=== PATIENT | female | born 1945 | race Caucasian/White ===

== ENCOUNTER → 2016-08-14 | Outpatient (REF) | payer MEDICARE, OTHER ==
[~2016-08-14] MED LIST: /LINE60TA OR; BABY81CH; BABY81CH OR; CALCCHW12 OR; CALCIUM/VITAMIN D; CRAN500C2 PO; FOSA70TA PO; GINKGO BILOBA; LIPI10TA; LIPI10TA OR; LISI20TA5; LISI20TA5 OR; MAGN500C PO; MAGNESIUM OXIDE; MULTIVIT; MULTIVIT OR; NAPR500T; PRED20TA; VITAMIN C; [UNRECOGNIZED DRUG - OTHER]
== END ==
LOC: M SFHCCAPE 16:10
PROVIDERS: ATTEND Physician Assistant
DX: R35.0 Frequency of micturition (principal)
CPT/HCPCS: 81002; 87088; 87186; G0463

== ENCOUNTER → 2016-09-23 | Outpatient (REF) | payer MEDICARE, OTHER ==
[2016-09-23 11:19] LABS: BASO % 0.8 % (0.0-1.0); EOS # 0.1 K/mm3 (0.0-0.50); EOS % 1.2 % (0.0-3.0); LARGE UNSTAINED CELL # 0.1 K/mm3 (0.0-0.4); LYMPH # 1.4 K/mm3 (1.5-4.5); LYMPH % 20.8 % (24.0-44.0); MEAN CORPUSCULAR HEMOGLOBIN 30.7 pg (27.0-33.0); MEAN CORPUSCULAR HGB CONC 32.2 g/dl (32.0-36.5); MEAN CORPUSCULAR VOLUME 95.1 fl (80.0-96.0); MONO # 0.5 K/mm3 (0.0-0.8); MONO % 7.6 % (0.0-5.0); NEUTROPHILS % 67.6 % (36.0-66.0); PLATELET COUNT, AUTOMATED 206 k/mm3 (150-450); RED CELL DISTRIBUTION WIDTH 12.7 % (11.5-14.5); WHITE BLOOD COUNT 5.9 K/mm3 (4.0-10.0)
[2016-09-23 11:32] LABS: ALBUMIN 3.8 GM/DL (3.2-5.2); ALBUMIN/GLOBULIN RATIO 1.36 (1.00-1.93); ALKALINE PHOSPHATASE 64 U/L (45-117); ALT/SGPT 33 U/L (12-78); ANION GAP 6 MEQ/L (8-16); AST/SGOT 22 U/L (15-37); BILIRUBIN,TOTAL 0.6 MG/DL (0.2-1.0); BLOOD UREA NITROGEN 18 MG/DL (7-18); CALCIUM LEVEL 8.7 MG/DL (8.8-10.2); CARBON DIOXIDE LEVEL 32 MEQ/L (21-32); CHLORIDE LEVEL 105 MEQ/L (98-107); CHOLESTEROL LEVEL 178 MG/DL (<200); CREATININE FOR GFR 0.82 MG/DL (0.55-1.02); GLOMERULAR FILTRATION RATE > 60.0 (>45); GLUCOSE, FASTING 92 MG/DL (80-110); POTASSIUM SERUM 4.5 MEQ/L (3.5-5.1); SODIUM LEVEL 143 MEQ/L (136-145); TOTAL PROTEIN 6.6 GM/DL (6.4-8.2); TRIGLYCERIDES LEVEL 82 MG/DL (<150)
[2016-09-23 11:34] LABS: VITAMIN B12 LEVEL 1057 PG/ML (247-911)
[2016-09-25 11:11] LABS: ALBUMIN 2.77 GM/DL (3.29-5.55); GAMMA GLOBULIN % 29.5 % (11.1-18.8)
== END ==
LOC: M SFHCPLAZ 08:17
PROVIDERS: ATTEND Family Medicine
DX: I10 Essential (primary) hypertension (principal); E78.5 Hyperlipidemia, unspecified; E55.9 Vitamin D deficiency, unspecified

== ENCOUNTER → 2017-02-27 | Outpatient (REF) | payer MEDICARE, OTHER ==
[2017-02-27 13:28] LABS: ALBUMIN 3.9 GM/DL (3.2-5.2); ALBUMIN/GLOBULIN RATIO 1.44 (1.00-1.93); ALKALINE PHOSPHATASE 65 U/L (45-117); ALT/SGPT 24 U/L (12-78); ANION GAP 6 MEQ/L (8-16); AST/SGOT 15 U/L (15-37); BILIRUBIN,TOTAL 0.5 MG/DL (0.2-1.0); BLOOD UREA NITROGEN 17 MG/DL (7-18); CARBON DIOXIDE LEVEL 32 MEQ/L (21-32); CHLORIDE LEVEL 107 MEQ/L (98-107); CREATININE FOR GFR 0.79 MG/DL (0.55-1.02); FREE T4 0.97 NG/DL (0.76-1.46); GLOMERULAR FILTRATION RATE > 60.0 (>45); GLUCOSE, FASTING 85 MG/DL (80-110); MAGNESIUM LEVEL 2.3 MG/DL (1.8-2.4); POTASSIUM SERUM 4.1 MEQ/L (3.5-5.1); SODIUM LEVEL 145 MEQ/L (136-145); TOTAL PROTEIN 6.6 GM/DL (6.4-8.2)
== END ==
LOC: M SFHCPLAZ 08:24
PROVIDERS: ATTEND Family Medicine
DX: E55.9 Vitamin D deficiency, unspecified (principal); I10 Essential (primary) hypertension; E78.5 Hyperlipidemia, unspecified; Z79.899 Other long term (current) drug therapy

== ENCOUNTER → 2017-07-06 | Outpatient (REF) | payer MEDICARE, OTHER ==
[2017-07-06 11:37] LABS: BASO # 0.1 10^3/uL (0.0-0.2); BASO % 0.9 % (0.0-1.0); EOS # 0.1 10^3/uL (0.0-0.50); EOS % 1.4 % (0.0-3.0); HEMATOCRIT 43.2 % (36.0-47.0); HEMOGLOBIN 14.4 g/dl (12.0-16.0); IMMATURE GRANULOCYTE % 0.5 % (0-0); LYMPH # 1.5 10^3/uL (1.5-4.5); LYMPH % 22.7 % (24.0-44.0); MEAN CORPUSCULAR HEMOGLOBIN 31.2 pg (27.0-33.0); MEAN CORPUSCULAR HGB CONC 33.3 g/dl (32.0-36.5); MEAN CORPUSCULAR VOLUME 93.7 fl (80.0-96.0); MONO # 0.6 10^3/uL (0.0-0.8); MONO % 8.9 % (0.0-5.0); NEUTROPHILS # 4.3 10^3/uL (1.8-7.7); NEUTROPHILS % 65.6 % (36.0-66.0); PLATELET COUNT, AUTOMATED 239 10^3/uL (150-450); RED BLOOD COUNT 4.61 10^6/uL (4.00-5.40); RED CELL DISTRIBUTION WIDTH 12.7 % (11.5-14.5); WHITE BLOOD COUNT 6.5 10^3/uL (4.0-10.0)
[2017-07-06 11:54] LABS: PTH INTACT 65.1 PG/ML (14.0-72.0); TOTAL 25(OH) VITAMIN D 45.3 NG/ML (30.0-100.0)
[2017-07-06 12:05] LABS: ALBUMIN 3.8 GM/DL (3.2-5.2); ALBUMIN/GLOBULIN RATIO 1.31 (1.00-1.93); ALKALINE PHOSPHATASE 62 U/L (45-117); ALT/SGPT 21 U/L (12-78); ANION GAP 3 MEQ/L (8-16); AST/SGOT 17 U/L (7-37); BILIRUBIN,TOTAL 0.6 MG/DL (0.2-1.0); BLOOD UREA NITROGEN 13 MG/DL (7-18); C REACTIVE PROTEIN QUANTITATIV < 0.30 MG/DL (0.00-0.30); CALCIUM LEVEL 8.7 MG/DL (8.8-10.2); CARBON DIOXIDE LEVEL 34 MEQ/L (21-32); CHLORIDE LEVEL 103 MEQ/L (98-107); CHOLESTEROL LEVEL 176 MG/DL (<200); CHOLESTEROL RISK RATIO 3.087 (<5); CPK CREATINE PHOSPHOKINASE 59 U/L (26-192); CREATININE FOR GFR 0.69 MG/DL (0.55-1.30); GLOMERULAR FILTRATION RATE > 60.0 (>45); GLUCOSE, FASTING 97 MG/DL (70-100); HDL CHOLESTEROL 57 MG/DL (>40); LDL CHOLESTEROL 97.2 MG/DL (<100); NON-HDL-C 119 MG/DL; POTASSIUM SERUM 4.4 MEQ/L (3.5-5.1); SODIUM LEVEL 140 MEQ/L (136-145); TOTAL PROTEIN 6.7 GM/DL (6.4-8.2); TRIGLYCERIDES LEVEL 109 MG/DL (<150)
== END ==
LOC: M SFHCCLAY 07:21
DX: D75.89 Other specified diseases of blood and blood-forming organs (principal); E78.5 Hyperlipidemia, unspecified; E55.9 Vitamin D deficiency, unspecified
CPT/HCPCS: 82550

== ENCOUNTER → 2017-11-03 | Outpatient (REF) | payer MEDICARE, OTHER ==
[2017-11-03 11:25] LABS: BASO # 0.1 10^3/uL (0.0-0.2); BASO % 0.9 % (0.0-1.0); EOS # 0.1 10^3/uL (0.0-0.50); EOS % 1.2 % (0.0-3.0); HEMATOCRIT 43.6 % (36.0-47.0); HEMOGLOBIN 14.5 g/dl (12.0-15.5); IMMATURE GRANULOCYTE % 0.1 % (0-3.0); LYMPH # 1.8 10^3/uL (1.5-4.5); LYMPH % 25.9 % (24.0-44.0); MEAN CORPUSCULAR HGB CONC 33.3 g/dl (32.0-36.5); MEAN CORPUSCULAR VOLUME 93.2 fl (80.0-96.0); MONO # 0.7 10^3/uL (0.0-0.8); MONO % 9.5 % (0.0-5.0); NEUTROPHILS # 4.3 10^3/uL (1.8-7.7); NEUTROPHILS % 62.4 % (36.0-66.0); PLATELET COUNT, AUTOMATED 242 10^3/uL (150-450); RED BLOOD COUNT 4.68 10^6/uL (4.00-5.40); RED CELL DISTRIBUTION WIDTH 12.5 % (11.5-14.5); WHITE BLOOD COUNT 6.8 10^3/uL (4.0-10.0)
[2017-11-03 11:34] LABS: ALBUMIN 3.8 GM/DL (3.2-5.2); ALBUMIN/GLOBULIN RATIO 1.23 (1.00-1.93); ALKALINE PHOSPHATASE 74 U/L (45-117); ALT/SGPT 21 U/L (12-78); ANION GAP 5 MEQ/L (8-16); AST/SGOT 19 U/L (7-37); BILIRUBIN,TOTAL 0.7 MG/DL (0.2-1.0); BLOOD UREA NITROGEN 15 MG/DL (7-18); CALCIUM LEVEL 8.7 MG/DL (8.8-10.2); CARBON DIOXIDE LEVEL 31 MEQ/L (21-32); CHLORIDE LEVEL 105 MEQ/L (98-107); CREATININE FOR GFR 0.82 MG/DL (0.55-1.30); GLOMERULAR FILTRATION RATE > 60.0 (>45); GLUCOSE, FASTING 92 MG/DL (70-100); POTASSIUM SERUM 4.3 MEQ/L (3.5-5.1); SODIUM LEVEL 141 MEQ/L (136-145); TOTAL PROTEIN 6.9 GM/DL (6.4-8.2)
[2017-11-03 11:42] LABS: ESTIMATED AVERAGE GLUCOSE 105 MG/DL (60-110); HEMOGLOBIN A1c 5.3 %
[2017-11-03 11:56] LABS: PTH INTACT 66.9 PG/ML (18.5-88.0); TOTAL 25(OH) VITAMIN D 57.6 NG/ML (30.0-100.0)
== END ==
LOC: M SFHCCLAY 07:37
DX: D75.89 Other specified diseases of blood and blood-forming organs (principal); E55.9 Vitamin D deficiency, unspecified; E78.5 Hyperlipidemia, unspecified; R73.01 Impaired fasting glucose
CPT/HCPCS: 80053

== ENCOUNTER → 2018-04-02 | Outpatient (CLI) | payer MEDICARE, OTHER | LOC: M WHC 08:24 | DX: Z12.31 Encounter for screening mammogram for malignant neoplasm of breast (principal); Z80.3 Family history of malignant neoplasm of breast | CPT/HCPCS: 77067 ==

== ENCOUNTER → 2018-04-08 | Outpatient (REF) | payer MEDICARE, OTHER ==
[2018-04-08 11:36] LABS: BASO # 0.1 10^3/uL (0.0-0.2); BASO % 0.8 % (0.0-1.0); EOS # 0.1 10^3/uL (0.0-0.50); EOS % 1.6 % (0.0-3.0); HEMATOCRIT 42.5 % (36.0-47.0); HEMOGLOBIN 13.9 g/dl (12.0-15.5); IMMATURE GRANULOCYTE % 0.3 % (0-3.0); LYMPH # 1.6 10^3/uL (1.5-4.5); LYMPH % 24.7 % (24.0-44.0); MEAN CORPUSCULAR HEMOGLOBIN 31.5 pg (27.0-33.0); MEAN CORPUSCULAR HGB CONC 32.7 g/dl (32.0-36.5); MEAN CORPUSCULAR VOLUME 96.4 fl (80.0-96.0); MONO # 0.6 10^3/uL (0.0-0.8); MONO % 9.2 % (0.0-5.0); NEUTROPHILS # 4.1 10^3/uL (1.8-7.7); NEUTROPHILS % 63.4 % (36.0-66.0); PLATELET COUNT, AUTOMATED 248 10^3/uL (150-450); RED BLOOD COUNT 4.41 10^6/uL (4.00-5.40); RED CELL DISTRIBUTION WIDTH 13.1 % (11.5-14.5); RETIC HEMOGLOBIN EQUIVALENT 36.4 pg (24-36); RETICULOCYTE # 149.9 10^9/L (17-77); RETICULOCYTE % 3.4 % (0.5-1.5); WHITE BLOOD COUNT 6.4 10^3/uL (4.0-10.0)
[2018-04-08 12:07] LABS: ALBUMIN 3.7 GM/DL (3.2-5.2); ALBUMIN/GLOBULIN RATIO 1.32 (1.00-1.93); ALKALINE PHOSPHATASE 71 U/L (45-117); ALT/SGPT 20 U/L (12-78); ANION GAP 8 MEQ/L (8-16); AST/SGOT 19 U/L (7-37); BILIRUBIN,TOTAL 0.6 MG/DL (0.2-1.0); BLOOD UREA NITROGEN 14 MG/DL (7-18); CALCIUM LEVEL 9.1 MG/DL (8.8-10.2); CARBON DIOXIDE LEVEL 31 MEQ/L (21-32); CHLORIDE LEVEL 104 MEQ/L (98-107); CHOLESTEROL LEVEL 161 MG/DL (<200); CHOLESTEROL RISK RATIO 2.875 (<5); CREATININE FOR GFR 0.89 MG/DL (0.55-1.30); FREE T4 0.99 NG/DL (0.76-1.46); GLOMERULAR FILTRATION RATE > 60.0 (>39); GLUCOSE, FASTING 95 MG/DL (70-100); HDL CHOLESTEROL 56 MG/DL (>40); LDL CHOLESTEROL 87 MG/DL (<100); NON-HDL-C 105 MG/DL; POTASSIUM SERUM 4.6 MEQ/L (3.5-5.1); SODIUM LEVEL 143 MEQ/L (136-145); THYROID STIMULATING HORMONE 0.491 uIU/ML (0.358-3.740); TOTAL PROTEIN 6.5 GM/DL (6.4-8.2); TRIGLYCERIDES LEVEL 91 MG/DL (<150)
[2018-04-09 14:27] LABS: INSULIN LEVEL 9.2 uIU/mL (2.6-24.9)
== END ==
LOC: M SFHCCLAY 08:33
DX: E78.5 Hyperlipidemia, unspecified (principal); R73.01 Impaired fasting glucose
CPT/HCPCS: 83525

== ENCOUNTER → 2018-10-11 | Outpatient (REF) | payer MEDICARE, OTHER ==
[~2018-10-11] MED LIST changes: -/LINE60TA OR; +ZYVO100T OR
[2018-10-11 11:57] LABS: BASO # 0.1 10^3/uL (0.0-0.2); BASO % 1.2 % (0.0-1.0); EOS # 0.1 10^3/uL (0.0-0.50); EOS % 1.7 % (0.0-3.0); HEMATOCRIT 44.9 % (36.0-47.0); HEMOGLOBIN 14.6 g/dl (12.0-15.5); LYMPH # 1.5 10^3/uL (1.5-4.5); LYMPH % 23.1 % (24.0-44.0); MEAN CORPUSCULAR HEMOGLOBIN 30.7 pg (27.0-33.0); MEAN CORPUSCULAR HGB CONC 32.5 g/dl (32.0-36.5); MEAN CORPUSCULAR VOLUME 94.5 fl (80.0-96.0); MONO # 0.6 10^3/uL (0.0-0.8); MONO % 8.5 % (0.0-5.0); NEUTROPHILS # 4.3 10^3/uL (1.8-7.7); NEUTROPHILS % 65.2 % (36.0-66.0); PLATELET COUNT, AUTOMATED 236 10^3/uL (150-450); RED BLOOD COUNT 4.75 10^6/uL (4.00-5.40); WHITE BLOOD COUNT 6.6 10^3/uL (4.0-10.0)
[2018-10-11 12:13] LABS: ALBUMIN 3.8 GM/DL (3.2-5.2); ALT/SGPT 20 U/L (12-78); BILIRUBIN,TOTAL 0.5 MG/DL (0.2-1.0); BLOOD UREA NITROGEN 17 MG/DL (7-18); CALCIUM LEVEL 9.2 MG/DL (8.8-10.2); CARBON DIOXIDE LEVEL 33 MEQ/L (21-32); CHLORIDE LEVEL 106 MEQ/L (98-107); CREATININE FOR GFR 0.82 MG/DL (0.55-1.30); FERRITIN 24 NG/ML (8-252); GLOMERULAR FILTRATION RATE > 60.0 (>39); GLUCOSE, FASTING 97 MG/DL (70-100); IRON (FE) 113 UG/DL (50-170); MAGNESIUM LEVEL 2.1 MG/DL (1.8-2.4); POTASSIUM SERUM 4.3 MEQ/L (3.5-5.1); SODIUM LEVEL 140 MEQ/L (136-145); TOTAL IRON BINDING CAPACITY 290 UG/DL (250-450); TOTAL PROTEIN 6.6 GM/DL (6.4-8.2)
== END ==
LOC: M SFHCCLAY 08:31
PROVIDERS: ATTEND Family Medicine
DX: R73.01 Impaired fasting glucose (principal); D75.89 Other specified diseases of blood and blood-forming organs; I10 Essential (primary) hypertension; D50.9 Iron deficiency anemia, unspecified

== ENCOUNTER → 2019-03-16 | Outpatient (REF) | payer MEDICARE, OTHER ==
[2019-03-16 11:44] LABS: AMORPHOUS SEDIMENT LARGE (NEGATIVE); APPEARANCE, URINE TURBID (CLEAR); BACTERIA, URINE AUTO 2+ (NEGATIVE); BILIRUBIN, URINE AUTO NEGATIVE (NEGATIVE); BLOOD, URINE BLOOD 1+ (NEGATIVE); COLOR, URINE YELLOW (YELLOW); GLUCOSE, URINE (UA) AUTO NEGATIVE (NEGATIVE); KETONE, URINE AUTO NEGATIVE (NEGATIVE); LEUKOCYTE ESTERASE, URINE AUTO 3+ (NEGATIVE); NITRITE, URINE AUTO NEGATIVE (NEGATIVE); PROTEIN, URINE AUTO NEGATIVE (NEGATIVE); RBC, URINE AUTO 6 /HPF (0-3); SPECIFIC GRAVITY URINE AUTO 1.009 (1.002-1.035); SQUAMOUS EPITHELIAL CELL UR AU 26 /HPF (0-6); TRANSITIONAL EPITHELIAL AUTO 12 /HPF; UROBILINOGEN, URINE AUTO 0.2 mg/dL (0.0-2.0); WBC, URINE AUTO 81 /HPF (0-3)
[2019-03-16 11:52] LABS: ALBUMIN 3.9 GM/DL (3.2-5.2); ALT/SGPT 19 U/L (12-78); BILIRUBIN,TOTAL 0.6 MG/DL (0.2-1.0); BLOOD UREA NITROGEN 17 MG/DL (7-18); CALCIUM LEVEL 9.4 MG/DL (8.8-10.2); CARBON DIOXIDE LEVEL 36 MEQ/L (21-32); CHLORIDE LEVEL 106 MEQ/L (98-107); CHOLESTEROL LEVEL 184 MG/DL (<200); CHOLESTEROL RISK RATIO 3.066 (<5); CREATININE FOR GFR 0.95 MG/DL (0.55-1.30); FREE T4 1.01 NG/DL (0.76-1.46); GLOMERULAR FILTRATION RATE > 60.0 (>39); GLUCOSE, FASTING 108 MG/DL (70-100); HDL CHOLESTEROL 60 MG/DL (>40); LDL CHOLESTEROL 99 MG/DL (<100); NON-HDL-C 124 MG/DL; POTASSIUM SERUM 4.2 MEQ/L (3.5-5.1); SODIUM LEVEL 144 MEQ/L (136-145); THYROID STIMULATING HORMONE 0.471 uIU/ML (0.358-3.740); TRIGLYCERIDES LEVEL 123 MG/DL (<150)
[2019-03-16 12:33] LABS: CREATININE, URINE 68.8 MG/DL; MALB URINE SIEMENS 40.5 MG/L; MAU/CREAT RATIO 58.8 MCG/MG (0.0-30.0)
[2019-03-16 14:44] LABS: HEMOGLOBIN A1c 5.4 %
== END ==
LOC: M SFHCCLAY 08:44
PROVIDERS: ATTEND Family Medicine
DX: E78.5 Hyperlipidemia, unspecified (principal); R73.01 Impaired fasting glucose

== ENCOUNTER → 2019-05-16 | Outpatient (CLI) | payer MEDICARE, OTHER ==
--- NOTE | 2019-05-16 12:05 | REPMRS ---
Patient History The patient states she has not had a clinical breast exam in over a year. 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 Family history of breast cancer at age 50 or over in maternal aunt. No Hormone Replacement Therapy 3D TOMOSYNTHESIS WAS PERFORMED. [facility] lifetime risk for breast cancer is 5.8%. Digital Woman Screen Mammo: May 16, 2019 - Exam #: [id number] Bilateral CC and MLO view(s) were taken. Technologist: Ruth Morales, Technologist Prior study comparison: April 02, 2018, bilateral digital woman screen mammo performed at [facility]. April 01, 2017, digital woman screen mammo performed at [facility]. FINDINGS: The breast tissue is heterogeneously dense. This may lower the sensitivity of mammography. There has been no change in the appearance of the mammogram from the prior studies. There is a moderate amount of residual fibroglandular tissue which is fairly symmetric. There is no interval development of dominant mass, areas of architectural distortion, or clustered microcalcification typical of malignancy. Assessment: BI-RADS/ACR category 1 mammogram. Negative Mammogram. Recommendation Routine screening mammogram in 1 year (for women over age 40). This mammogram was interpreted with the aid of an FDA-approved computer-aided dectection system. Electronically Signed By: Stanley Nowak MD 05/16/19 [id number]
--- NOTE | 2019-05-17 13:53 | DEXA ---
AP SPINE L1 - L4 0.987 -1.7 0.0 LT FEMUR TOTAL 0.863 -1.1 0.4 LT NECK 0.796 -1.7 0.0 RT FEMUR TOTAL 0.808 -1.6 0.0 RT NECK 0.783 -1.8 -0.1 TOTAL BODY TOTAL OTHER COMMENTS: There is low bone density of the spine and hips. The decreased density of the spine does represent a significant change. The increased density of the left hip does not represent a significant change. The decreased density of the right hip does represent a significant change. The density of the spine has increased 0.5% since the initial exam on 10/12/2002. The spine density has decreased 2.8% since the most recent exam on 04/01/2017. The density of the left hip has decreased 13.4% since the initial exam on 10/12/2002. The density of the left hip has increased 0.1% since the most recent exam on 04/01/2017. The density of the right hip has decreased 11.8% since the initial exam on 10/12/2002. The density of the right hip has decreased 3.8% since the most recent exam on 04/01/2017. FOLLOW-UP: Recommendation for the next bone density exam: 2 years. VENANCIO
== END ==
LOC: M WHC 10:56
PROVIDERS: ATTEND Family Medicine
DX: Z12.31 Encounter for screening mammogram for malignant neoplasm of breast (principal); M85.88 Other specified disorders of bone density and structure, other site; Z80.3 Family history of malignant neoplasm of breast; Z85.810 Personal history of malignant neoplasm of tongue; M85.851 Other specified disorders of bone density and structure, right thigh; M85.852 Other specified disorders of bone density and structure, left thigh

== ENCOUNTER → 2019-08-08 | Outpatient (REF) | payer MEDICARE, OTHER ==
[2019-08-08 18:08] LABS: BASO % 0.6 % (0.0-1.0); EOS # 0.1 10^3/uL (0.0-0.5); EOS % 1.8 % (0.0-3.0); HEMOGLOBIN 14.4 g/dl (12.0-15.5); LYMPH # 1.8 10^3/uL (1.5-5.0); LYMPH % 26.1 % (24.0-44.0); MEAN CORPUSCULAR HEMOGLOBIN 30.8 pg (27.0-33.0); MEAN CORPUSCULAR HGB CONC 32.7 g/dl (32.0-36.5); MEAN CORPUSCULAR VOLUME 94.2 fl (80.0-96.0); MONO # 0.6 10^3/uL (0.0-0.8); MONO % 8.9 % (0.0-5.0); NEUTROPHILS # 4.3 10^3/uL (1.5-8.5); NEUTROPHILS % 62.3 % (36.0-66.0); PLATELET COUNT, AUTOMATED 238 10^3/uL (150-450); RED BLOOD COUNT 4.67 10^6/uL (4.00-5.40); WHITE BLOOD COUNT 6.9 10^3/uL (4.0-10.0)
[2019-08-08 18:11] LABS: ALBUMIN 3.7 GM/DL (3.2-5.2); ALT/SGPT 23 U/L (12-78); BILIRUBIN,TOTAL 0.4 MG/DL (0.2-1.0); BLOOD UREA NITROGEN 15 MG/DL (7-18); CALCIUM LEVEL 9.1 MG/DL (8.8-10.2); CARBON DIOXIDE LEVEL 33 MEQ/L (21-32); CHLORIDE LEVEL 104 MEQ/L (98-107); CREATININE FOR GFR 0.81 MG/DL (0.55-1.30); GLOMERULAR FILTRATION RATE > 60.0 (>39); GLUCOSE, FASTING 99 MG/DL (70-100); POTASSIUM SERUM 4.1 MEQ/L (3.5-5.1); SODIUM LEVEL 141 MEQ/L (136-145); TOTAL PROTEIN 6.3 GM/DL (6.4-8.2)
[2019-08-08 18:21] LABS: PTH INTACT 51.9 PG/ML (18.5-88.0)
[2019-08-08 19:36] LABS: HEMOGLOBIN A1c 5.6 %
== END ==
LOC: M SFHCCAPE 07:06
PROVIDERS: ATTEND Family Medicine
DX: R73.01 Impaired fasting glucose (principal); E55.9 Vitamin D deficiency, unspecified

== ENCOUNTER → 2020-01-12 | Outpatient (REF) | payer MEDICARE, OTHER ==
[2020-02-26 11:15] LABS: ALBUMIN 3.7 GM/DL (3.2-5.2); ALT/SGPT 20 U/L (12-78); BILIRUBIN,TOTAL 0.4 MG/DL (0.2-1.0); BLOOD UREA NITROGEN 21 MG/DL (7-18); CARBON DIOXIDE LEVEL 33 MEQ/L (21-32); CHLORIDE LEVEL 107 MEQ/L (98-107); CHOLESTEROL LEVEL 170 MG/DL (<200); CHOLESTEROL RISK RATIO 3.333 (<5); CREATININE FOR GFR 0.84 MG/DL (0.55-1.30); GLOMERULAR FILTRATION RATE > 60.0 (>39); GLUCOSE, FASTING 102 MG/DL (70-100); HDL CHOLESTEROL 51 MG/DL (>40); LDL CHOLESTEROL 100 MG/DL (<100); MAGNESIUM LEVEL 2.2 MG/DL (1.8-2.4); NON-HDL-C 119 MG/DL; POTASSIUM SERUM 4.2 MEQ/L (3.5-5.1); SODIUM LEVEL 142 MEQ/L (136-145); TOTAL PROTEIN 6.7 GM/DL (6.4-8.2); TRIGLYCERIDES LEVEL 97 MG/DL (<150)
== END ==
LOC: M LABDRAWC 10:39
PROVIDERS: ATTEND Family Medicine
DX: E78.5 Hyperlipidemia, unspecified (principal); R73.01 Impaired fasting glucose; I10 Essential (primary) hypertension

== ENCOUNTER → 2020-07-25 | Outpatient (REF) | payer MEDICARE, OTHER ==
[2020-07-25 12:17] LABS: BASO # 0.1 10^3/uL (0.0-0.2); EOS # 0.1 10^3/uL (0.0-0.5); EOS % 1.5 % (0.0-3.0); HEMATOCRIT 44.9 % (36.0-47.0); HEMOGLOBIN 14.4 g/dl (12.0-15.5); LYMPH # 1.4 10^3/uL (1.5-5.0); LYMPH % 20.4 % (24.0-44.0); MEAN CORPUSCULAR HEMOGLOBIN 30.4 pg (27.0-33.0); MEAN CORPUSCULAR HGB CONC 32.1 g/dl (32.0-36.5); MEAN CORPUSCULAR VOLUME 94.7 fl (80.0-96.0); MONO # 0.6 10^3/uL (0.0-0.8); MONO % 8.6 % (2.0-8.0); NEUTROPHILS # 4.6 10^3/uL (1.5-8.5); NEUTROPHILS % 68.2 % (36.0-66.0); PLATELET COUNT, AUTOMATED 232 10^3/uL (150-450); RED BLOOD COUNT 4.74 10^6/uL (4.00-5.40); WHITE BLOOD COUNT 6.7 10^3/uL (4.0-10.0)
[2020-07-25 12:49] LABS: ALBUMIN 3.9 GM/DL (3.2-5.2); ALT/SGPT 30 U/L (12-78); BILIRUBIN,TOTAL 0.3 MG/DL (0.2-1.0); BLOOD UREA NITROGEN 16 MG/DL (7-18); CALCIUM LEVEL 9.4 MG/DL (8.8-10.2); CARBON DIOXIDE LEVEL 32 MEQ/L (21-32); CHLORIDE LEVEL 104 MEQ/L (98-107); CREATININE FOR GFR 0.79 MG/DL (0.55-1.30); FERRITIN 46 NG/ML (8-252); GLOMERULAR FILTRATION RATE > 60.0 (>39); GLUCOSE, FASTING 101 MG/DL (70-100); POTASSIUM SERUM 4.6 MEQ/L (3.5-5.1); SODIUM LEVEL 141 MEQ/L (136-145); TOTAL PROTEIN 6.8 GM/DL (6.4-8.2)
[2020-07-25 12:51] LABS: PTH INTACT 67.1 PG/ML (18.5-88.0); TOTAL 25(OH) VITAMIN D 77.3 NG/ML (30.0-100.0)
[2020-07-25 13:23] LABS: HEMOGLOBIN A1c 5.2 %
== END ==
LOC: M SFHCPLAZ 08:38
PROVIDERS: ATTEND Family Medicine
DX: E55.9 Vitamin D deficiency, unspecified (principal); I10 Essential (primary) hypertension; E78.5 Hyperlipidemia, unspecified; D75.89 Other specified diseases of blood and blood-forming organs; R73.01 Impaired fasting glucose

== ENCOUNTER → 2020-07-31 | Outpatient (REF) | payer MEDICARE, OTHER ==
[2020-07-31 13:51] LABS: APPEARANCE, URINE CLEAR (CLEAR); BACTERIA, URINE AUTO NEGATIVE (NEGATIVE); BILIRUBIN, URINE AUTO NEGATIVE (NEGATIVE); BLOOD, URINE BLOOD NEGATIVE (NEGATIVE); COLOR, URINE YELLOW (YELLOW); GLUCOSE, URINE (UA) AUTO NEGATIVE (NEGATIVE); KETONE, URINE AUTO NEGATIVE (NEGATIVE); LEUKOCYTE ESTERASE, URINE AUTO NEGATIVE (NEGATIVE); NITRITE, URINE AUTO NEGATIVE (NEGATIVE); PROTEIN, URINE AUTO NEGATIVE (NEGATIVE); RBC, URINE AUTO 1 /HPF (0-3); SPECIFIC GRAVITY URINE AUTO 1.011 (1.002-1.035); SQUAMOUS EPITHELIAL CELL UR AU 0 /HPF (0-6); UROBILINOGEN, URINE AUTO 0.2 mg/dL (0.0-2.0); WBC, URINE AUTO 1 /HPF (0-3)
== END ==
LOC: M SFHCPLAZ 13:24
PROVIDERS: ATTEND Family Medicine
DX: N39.0 Urinary tract infection, site not specified (principal)
CPT/HCPCS: 81001; 87086; G0463

== ENCOUNTER → 2020-08-22 | Outpatient (CLI) | payer MEDICARE, OTHER ==
--- NOTE | 2020-08-22 13:18 | REPMRS ---
Patient History The patient states she has not had a clinical breast exam in over a year. Patient is postmenopausal and has history of other cancer at age 66. Family history of breast cancer at age 50 or over in maternal aunt. No Hormone Replacement Therapy Digital Woman Screen Mammo: August 22, 2020 - Exam #: [id number] Bilateral CC and MLO view(s) were taken. Technologist: Ruth Morales, Technologist Prior study comparison: May 16, 2019, bilateral digital woman screen mammo performed at [facility]. April 02, 2018, bilateral digital woman screen mammo performed at [facility]. April 01, 2017, digital woman screen mammo performed at [facility]. FINDINGS: There are scattered fibroglandular densities. The Volpara volumetric breast density category is:B. There has been no change in the appearance of the mammogram from the prior studies. There is a mild amount of scattered fibroglandular density which is fairly symmetric. There is no interval development of dominant mass, architectural distortion, or grouped microcalcification suggestive of malignancy. 3-D tomosynthesis shows no additional findings. Assessment: BI-RADS/ACR category 1 mammogram. Negative Mammogram. Recommendation Routine screening mammogram of both breasts in 1 year (for women over age 40). This patient's [facility] Lifetime Breast Cancer Risk is estimated at 5.4 %. This mammogram was interpreted with the aid of an FDA-approved computer-aided dectection system. Electronically Signed By: Nilay Hinojosa MD 08/22/20 [id number]
== END ==
LOC: M WHC 12:17
PROVIDERS: ATTEND Family Medicine
DX: Z12.31 Encounter for screening mammogram for malignant neoplasm of breast (principal); Z78.0 Asymptomatic menopausal state; Z85.89 Personal history of malignant neoplasm of other organs and systems

== ENCOUNTER 2020-09-19 16:29 | Emergency (ER) | payer MEDICARE, OTHER ==
[~2020-09-19] VITALS: Ht 157.5 cm; Wt 66.5 kg
[2020-09-19 19:09] VITALS: BP 137/63
== END 2020-09-19 19:16 | disposition home or self-care (01) ==
LOC: M ED 16:29
DX: R10.2 Pelvic and perineal pain (principal); T83.89XA Other specified complication of genitourinary prosthetic devices, implants and grafts, initial encounter; I10 Essential (primary) hypertension; Z79.82 Long term (current) use of aspirin; Z79.899 Other long term (current) drug therapy; Z88.8 Allergy status to other drugs, medicaments and biological substances; Z88.1 Allergy status to other antibiotic agents

== ENCOUNTER → 2020-12-20 | Outpatient (REF) | payer MEDICARE, OTHER ==
[2020-12-20 13:07] LABS: ALBUMIN 3.9 GM/DL (3.2-5.2); ALT/SGPT 29 U/L (12-78); BILIRUBIN,TOTAL 0.7 MG/DL (0.2-1.0); BLOOD UREA NITROGEN 17 MG/DL (7-18); CALCIUM LEVEL 8.9 MG/DL (8.8-10.2); CARBON DIOXIDE LEVEL 33 MEQ/L (21-32); CHLORIDE LEVEL 103 MEQ/L (98-107); CHOLESTEROL LEVEL 185 MG/DL (<200); CHOLESTEROL RISK RATIO 3.189 (<5); CREATININE FOR GFR 0.73 MG/DL (0.55-1.30); FREE T4 0.95 NG/DL (0.76-1.46); GLOMERULAR FILTRATION RATE > 60.0 (>39); GLUCOSE, FASTING 88 MG/DL (70-100); HDL CHOLESTEROL 58 MG/DL (>40); LDL CHOLESTEROL 106 MG/DL (<100); NON-HDL-C 127 MG/DL; POTASSIUM SERUM 4.8 MEQ/L (3.5-5.1); PTH INTACT 77.6 PG/ML (18.5-88.0); SODIUM LEVEL 139 MEQ/L (136-145); TOTAL 25(OH) VITAMIN D 77.2 NG/ML (30.0-100.0); TOTAL PROTEIN 6.6 GM/DL (6.4-8.2); TRIGLYCERIDES LEVEL 103 MG/DL (<150)
[2020-12-21 11:52] LABS: ALBUMIN 4.16 GM/DL (3.29-5.55); ALPHA-1-GLOBULIN % 3.4 % (2.9-4.9); ALPHA-1-GLOBULINS 0.22 GM/DL (0.17-0.41); ALPHA-2-GLOBULINS % 10.5 % (7.1-11.8); BETA-1-GLOBULINS % 5.7 % (4.7-7.2); BETA-2-GLOBULINS % 4.6 % (3.2-6.5); GAMMA GLOBULIN % 12.8 % (11.1-18.8)
[2020-12-21 11:53] LABS: ALPHA-2-GLOBULINS 0.69 GM/DL (0.42-0.99); BETA-1-GLOBULINS 0.38 GM/DL (0.28-0.60); GAMMA GLOBULINS 0.84 GM/DL (0.65-1.58)
== END ==
LOC: M SFHCCLAY 09:36
PROVIDERS: ATTEND Family Medicine
DX: R73.01 Impaired fasting glucose (principal); E78.5 Hyperlipidemia, unspecified; D75.89 Other specified diseases of blood and blood-forming organs; E55.9 Vitamin D deficiency, unspecified; Z79.899 Other long term (current) drug therapy

== ENCOUNTER → 2021-05-23 | Outpatient (REF) | payer MEDICARE, OTHER ==
[2021-05-23 16:09] LABS: APPEARANCE, URINE CLOUDY (CLEAR); BACTERIA, URINE AUTO 1+ (NEGATIVE); BILIRUBIN, URINE AUTO NEGATIVE (NEGATIVE); BLOOD, URINE BLOOD 2+ (NEGATIVE); COLOR, URINE YELLOW (YELLOW); GLUCOSE, URINE (UA) AUTO NEGATIVE (NEGATIVE); KETONE, URINE AUTO NEGATIVE (NEGATIVE); LEUKOCYTE ESTERASE, URINE AUTO 3+ (NEGATIVE); MUCUS, URINE SMALL (NEGATIVE); NITRITE, URINE AUTO NEGATIVE (NEGATIVE); PROTEIN, URINE AUTO NEGATIVE (NEGATIVE); RBC, URINE AUTO 62 /HPF (0-3); SPECIFIC GRAVITY URINE AUTO 1.011 (1.002-1.035); SQUAMOUS EPITHELIAL CELL UR AU 8 /HPF (0-6); UROBILINOGEN, URINE AUTO 0.2 mg/dL (0.0-2.0); WBC, URINE AUTO 14 /HPF (0-3)
[2021-05-23 16:14] LABS: BASO # 0.1 10^3/uL (0.0-0.2); BASO % 1.1 % (0.0-1.0); EOS # 0.1 10^3/uL (0.0-0.5); HEMATOCRIT 42.7 % (36.0-47.0); LYMPH # 1.7 10^3/uL (1.5-5.0); LYMPH % 24.4 % (24.0-44.0); MEAN CORPUSCULAR HEMOGLOBIN 31.1 pg (27.0-33.0); MEAN CORPUSCULAR HGB CONC 32.8 g/dl (32.0-36.5); MEAN CORPUSCULAR VOLUME 94.9 fl (80.0-96.0); MONO # 0.7 10^3/uL (0.0-0.8); MONO % 9.7 % (2.0-8.0); NEUTROPHILS # 4.4 10^3/uL (1.5-8.5); NEUTROPHILS % 62.5 % (36.0-66.0); PLATELET COUNT, AUTOMATED 246 10^3/uL (150-450)
[2021-05-23 16:28] LABS: HEMOGLOBIN A1c 5.1 %
[2021-05-23 17:23] LABS: ALBUMIN 3.7 GM/DL (3.2-5.2); ALT/SGPT 20 U/L (12-78); BILIRUBIN,TOTAL 0.5 MG/DL (0.2-1.0); BLOOD UREA NITROGEN 15 MG/DL (7-18); CALCIUM LEVEL 9.4 MG/DL (8.8-10.2); CARBON DIOXIDE LEVEL 30 MEQ/L (21-32); CHLORIDE LEVEL 106 MEQ/L (98-107); CREATININE FOR GFR 0.81 MG/DL (0.55-1.30); FERRITIN 80 NG/ML (8-252); GLOMERULAR FILTRATION RATE > 60.0 (>39); GLUCOSE, FASTING 100 MG/DL (70-100); MAGNESIUM LEVEL 2.3 MG/DL (1.8-2.4); NT-PRO BNP 63 PG/ML (<125); POTASSIUM SERUM 4.6 MEQ/L (3.5-5.1); SODIUM LEVEL 140 MEQ/L (136-145); TOTAL PROTEIN 6.9 GM/DL (6.4-8.2)
[2021-05-23 17:31] LABS: CREATININE, URINE 69.1 MG/DL; MALB URINE SIEMENS 13.2 MG/L; MAU/CREAT RATIO 19.1 MCG/MG (0.0-30.0)
== END ==
LOC: M SFHCCAPE 08:10
PROVIDERS: ATTEND Family Medicine
DX: D75.89 Other specified diseases of blood and blood-forming organs (principal); I10 Essential (primary) hypertension; R73.01 Impaired fasting glucose

== ENCOUNTER → 2021-08-10 | Outpatient (CLI) | payer MEDICARE, OTHER ==
[~2021-08-10] MED LIST changes: +ASPI81TA26 PO; +CVS500CA5 PO; +LISI20TA33 PO; +MAGN400T33 PO; +OYST500C PO; +VITMTA PO
== END ==
LOC: M LABSMTC 11:00
PROVIDERS: ATTEND Anesthesiology
DX: Z01.812 Encounter for preprocedural laboratory examination (principal); Z20.822 Contact with and (suspected) exposure to COVID-19

== ENCOUNTER 2021-08-15 11:13 | Day surgery (SDC) | payer MEDICARE, OTHER ==
[~2021-08-15] VITALS: Ht 157.5 cm; Wt 66.1 kg
[~2021-08-15 11:13] MED LIST changes: +LIDOCAINE 1% SDV 5ML VIAL As Ordered ONE; +LR 1,000 ML IV SCH; +MIDAZOLAM INJ 2MG/2ML VIAL (J2250 PER 1MG) As Ordered ONE; +TOBRADEX OPHTH SUSP 2.5 ML As Ordered ONE; +fentaNYL 100 MCG/2 ML INJECTION As Ordered ONE
[2021-08-15] MEDS: FLURBIPROFEN 0.03% OPHTH SOLN 2.5 ML OD SCH ×3 (12:23→12:41)
[2021-08-15] MEDS: TETRACAINE 0.5% OPHTH SOLN 4ML OD SCH ×2 (12:23→12:31)
[2021-08-15] MEDS: CYCLOPENTOLATE 1% OPHTH SOLN 2 ML BTL OD SCH ×3 (12:23→12:41)
[2021-08-15] MEDS: PHENYLEPHRINE 2.5% OPHTH SOL 2ML OD SCH ×3 (12:23→12:41)
[2021-08-15 14:40] VITALS: BP 128/57
== END 2021-08-15 15:03 | disposition home or self-care (01) ==
LOC: M SDC 11:13
PROVIDERS: ATTEND Ophthalmology
DX: H25.11 Age-related nuclear cataract, right eye (principal); I10 Essential (primary) hypertension; E78.5 Hyperlipidemia, unspecified; Z79.82 Long term (current) use of aspirin; Z79.899 Other long term (current) drug therapy; Z87.891 Personal history of nicotine dependence; Z88.1 Allergy status to other antibiotic agents; Z88.8 Allergy status to other drugs, medicaments and biological substances
CPT/HCPCS: 66984; J2250; J3010; V2632

== ENCOUNTER → 2021-10-21 | Outpatient (REF) | payer MEDICARE, OTHER ==
[~2021-10-21] MED LIST changes: -LIDOCAINE 1% SDV 5ML VIAL As Ordered ONE; -LR 1,000 ML IV SCH; -MIDAZOLAM INJ 2MG/2ML VIAL (J2250 PER 1MG) As Ordered ONE; -TOBRADEX OPHTH SUSP 2.5 ML As Ordered ONE; -fentaNYL 100 MCG/2 ML INJECTION As Ordered ONE
[2021-10-21 12:14] LABS: ALT/SGPT 21 U/L (12-78); BILIRUBIN,TOTAL 0.5 MG/DL (0.2-1.0); BLOOD UREA NITROGEN 16 MG/DL (7-18); CALCIUM LEVEL 9.4 MG/DL (8.8-10.2); CARBON DIOXIDE LEVEL 33 MEQ/L (21-32); CHLORIDE LEVEL 106 MEQ/L (98-107); CHOLESTEROL LEVEL 182 MG/DL (<200); CREATININE FOR GFR 0.82 MG/DL (0.55-1.30); GLOMERULAR FILTRATION RATE > 60.0 (>39); GLUCOSE, FASTING 105 MG/DL (70-100); POTASSIUM SERUM 4.6 MEQ/L (3.5-5.1); SODIUM LEVEL 140 MEQ/L (136-145); TRIGLYCERIDES LEVEL 100 MG/DL (<150)
[2021-10-21 12:15] LABS: ALBUMIN 3.8 GM/DL (3.2-5.2); CHOLESTEROL RISK RATIO 3.309 (<5); FREE T4 0.98 NG/DL (0.76-1.46); HDL CHOLESTEROL 55 MG/DL (>40); LDL CHOLESTEROL 107 MG/DL (<100); NON-HDL-C 127 MG/DL; THYROID STIMULATING HORMONE 0.529 uIU/ML (0.358-3.740); TOTAL PROTEIN 6.6 GM/DL (6.4-8.2)
[2021-10-21 12:49] LABS: HEMOGLOBIN A1c 5.4 %
== END ==
LOC: M SFHCCLAY 07:24
PROVIDERS: ATTEND Family Medicine
DX: E78.5 Hyperlipidemia, unspecified (principal); R73.01 Impaired fasting glucose

== ENCOUNTER → 2022-03-21 | Outpatient (REF) | payer MEDICARE, OTHER ==
[~2022-03-21] MED LIST changes: +ALEN70TA87 PO; -FOSA70TA PO
[2022-03-21 11:30] LABS: BASO # 0.1 10^3/uL (0.0-0.2); BASO % 0.8 % (0.0-1.0); EOS # 0.1 10^3/uL (0.0-0.5); EOS % 1.2 % (0.0-3.0); HEMATOCRIT 46.1 % (36.0-47.0); HEMOGLOBIN 14.7 g/dl (12.0-15.5); LYMPH # 1.5 10^3/uL (1.5-5.0); LYMPH % 22.9 % (24.0-44.0); MEAN CORPUSCULAR HEMOGLOBIN 30.8 pg (27.0-33.0); MEAN CORPUSCULAR HGB CONC 31.9 g/dl (32.0-36.5); MEAN CORPUSCULAR VOLUME 96.4 fl (80.0-96.0); MONO # 0.6 10^3/uL (0.0-0.8); MONO % 9.7 % (2.0-8.0); NEUTROPHILS # 4.3 10^3/uL (1.5-8.5); NEUTROPHILS % 64.9 % (36.0-66.0); PLATELET COUNT, AUTOMATED 236 10^3/uL (150-450); RED BLOOD COUNT 4.78 10^6/uL (4.00-5.40); WHITE BLOOD COUNT 6.6 10^3/uL (4.0-10.0)
[2022-03-21 11:52] LABS: HEMOGLOBIN A1c 5.2 %
[2022-03-21 12:24] LABS: BLOOD UREA NITROGEN 15 MG/DL (7-18); CREATININE FOR GFR 0.81 MG/DL (0.55-1.30); GLOMERULAR FILTRATION RATE > 60.0 (>39); GLUCOSE, FASTING 97 MG/DL (70-100); SODIUM LEVEL 139 MEQ/L (136-145)
[2022-03-21 12:25] LABS: ALBUMIN 3.9 GM/DL (3.2-5.2); ALT/SGPT 20 U/L (12-78); BILIRUBIN,TOTAL 0.7 MG/DL (0.2-1.0); CALCIUM LEVEL 9.4 MG/DL (8.8-10.2); CARBON DIOXIDE LEVEL 34 MEQ/L (21-32); CHLORIDE LEVEL 105 MEQ/L (98-107); NT-PRO BNP 51 PG/ML (<125); POTASSIUM SERUM 4.7 MEQ/L (3.5-5.1); TOTAL PROTEIN 6.7 GM/DL (6.4-8.2)
[2022-03-21 14:18] LABS: VITAMIN B12 LEVEL 936 PG/ML (247-911)
== END ==
LOC: M SFHCCLAY 08:42
PROVIDERS: ATTEND Family Medicine
DX: D75.89 Other specified diseases of blood and blood-forming organs (principal); R73.01 Impaired fasting glucose

== ENCOUNTER → 2022-04-10 | Outpatient (CLI) | payer MEDICARE, OTHER | LOC: M WHC 12:28 | PROVIDERS: ATTEND Family Medicine | DX: Z12.31 Encounter for screening mammogram for malignant neoplasm of breast (principal); M85.89 Other specified disorders of bone density and structure, multiple sites ==

== ENCOUNTER → 2022-05-21 | Outpatient (CLI) | payer MEDICARE, OTHER | LOC: M RAD 13:59 | PROVIDERS: ATTEND Family Medicine | DX: G45.4 Transient global amnesia (principal); G31.84 Mild cognitive impairment of uncertain or unknown etiology ==

== ENCOUNTER → 2022-09-03 | Outpatient (REF) | payer MEDICARE, OTHER ==
[2022-09-03 12:09] LABS: BASO # 0.1 10^3/uL (0.0-0.2); BASO % 1.3 % (0.0-1.0); EOS # 0.2 10^3/uL (0.0-0.5); EOS % 2.4 % (0.0-3.0); FERRITIN 21.6 NG/ML (7.3-270.7); HEMATOCRIT 43.3 % (36.0-47.0); HEMOGLOBIN 13.6 g/dl (12.0-15.5); LYMPH # 1.4 10^3/uL (1.5-5.0); LYMPH % 22.2 % (24.0-44.0); MEAN CORPUSCULAR HEMOGLOBIN 31.1 pg (27.0-33.0); MEAN CORPUSCULAR HGB CONC 31.4 g/dl (32.0-36.5); MEAN CORPUSCULAR VOLUME 99.1 fl (80.0-96.0); MONO # 0.6 10^3/uL (0.0-0.8); MONO % 9.8 % (2.0-8.0); NEUTROPHILS # 3.9 10^3/uL (1.5-8.5); PLATELET COUNT, AUTOMATED 239 10^3/uL (150-450); RED BLOOD COUNT 4.37 10^6/uL (4.00-5.40); THYROID STIMULATING HORMONE 0.562 uIU/ML (0.55-4.78); WHITE BLOOD COUNT 6.1 10^3/uL (4.0-10.0)
[2022-09-03 12:10] LABS: TOTAL 25(OH) VITAMIN D 91.9 NG/ML (20.0-100.0)
[2022-09-03 12:11] LABS: ALBUMIN 3.6 G/DL (3.2-5.2); ALKALINE PHOSPHATASE 64 U/L (46-116); ALT/SGPT 19 U/L (7.0-40); AST/SGOT 14 U/L (<34); BILIRUBIN,TOTAL 0.5 MG/DL (0.3-1.2); BLOOD UREA NITROGEN 18 MG/DL (9-23); CARBON DIOXIDE LEVEL 34 MMOL/L (20-31); CHLORIDE LEVEL 104 MMOL/L (98-107); CHOLESTEROL LEVEL 179 MG/DL (<200); CHOLESTEROL RISK RATIO 2.95 (<5); CREATININE FOR GFR 0.74 MG/DL (0.55-1.30); FREE T4 1.09 NG/DL (0.89-1.76); GLOMERULAR FILTRATION RATE > 60.0 (>39); GLUCOSE, FASTING 92 MG/DL (74-106); HDL CHOLESTEROL 60.6 MG/DL (>40); NON-HDL-C 118.4 MG/DL; POTASSIUM SERUM 4.5 MMOL/L (3.5-5.1); PTH INTACT 69.2 PG/ML (18.5-88.0); SODIUM LEVEL 141 MMOL/L (136-145); TOTAL PROTEIN 6.2 G/DL (5.7-8.2); TRIGLYCERIDES LEVEL 67 MG/DL (<150)
[2022-09-04 07:08] LABS: APOLIPOPROTEIN B/A-1 RATIO 0.6 ratio (0.0-0.6)
== END ==
LOC: M SFHCCLAY 08:25
PROVIDERS: ATTEND Family Medicine
DX: E78.5 Hyperlipidemia, unspecified (principal); E55.9 Vitamin D deficiency, unspecified; D75.89 Other specified diseases of blood and blood-forming organs

== ENCOUNTER → 2023-02-13 | Outpatient (REF) | payer MEDICARE, OTHER ==
[2023-02-13 12:44] LABS: BASO # 0.1 10^3/uL (0.0-0.2); BASO % 0.9 % (0.0-1.0); EOS # 0.1 10^3/uL (0.0-0.5); EOS % 1.4 % (0.0-3.0); HEMATOCRIT 42.9 % (36.0-47.0); LYMPH # 1.2 10^3/uL (1.5-5.0); LYMPH % 21.2 % (24.0-44.0); MEAN CORPUSCULAR HEMOGLOBIN 31.9 pg (27.0-33.0); MEAN CORPUSCULAR HGB CONC 32.6 g/dl (32.0-36.5); MEAN CORPUSCULAR VOLUME 97.7 fl (80.0-96.0); MONO # 0.5 10^3/uL (0.0-0.8); MONO % 9.3 % (2.0-8.0); NEUTROPHILS # 3.8 10^3/uL (1.5-8.5); NEUTROPHILS % 66.9 % (36.0-66.0); PLATELET COUNT, AUTOMATED 243 10^3/uL (150-450); RED BLOOD COUNT 4.39 10^6/uL (4.00-5.40); WHITE BLOOD COUNT 5.7 10^3/uL (4.0-10.0)
[2023-02-13 13:07] LABS: FERRITIN 25.6 NG/ML (7.3-270.7)
[2023-02-13 13:08] LABS: ALBUMIN 3.6 G/DL (3.2-5.2); ALKALINE PHOSPHATASE 70 U/L (46-116); ALT/SGPT 15 U/L (7.0-40); AST/SGOT 13 U/L (<34); BILIRUBIN,TOTAL 0.7 MG/DL (0.3-1.2); BLOOD UREA NITROGEN 15 MG/DL (9-23); CALCIUM LEVEL 9.2 MG/DL (8.3-10.6); CARBON DIOXIDE LEVEL 32 MMOL/L (20-31); CHLORIDE LEVEL 104 MMOL/L (98-107); CREATININE FOR GFR 0.78 MG/DL (0.55-1.30); GLOMERULAR FILTRATION RATE > 60.0 (>39); GLUCOSE, FASTING 95 MG/DL (74-106); POTASSIUM SERUM 4.4 MMOL/L (3.5-5.1); SODIUM LEVEL 140 MMOL/L (136-145)
[2023-02-13 13:09] LABS: VITAMIN B12 LEVEL 710 PG/ML (211-911)
[2023-02-14 13:08] LABS: H PYLORI SERUM QUANT IgG ABY 0.46 (0.00-0.79); TISSUE TRANSGLUTAMINASE IgA <2 U/mL (0-3)
== END ==
LOC: M SFHCPLAZ 08:40
PROVIDERS: ATTEND Family Medicine
DX: D50.9 Iron deficiency anemia, unspecified (principal)

== ENCOUNTER → 2023-02-17 | Outpatient (REF) | payer MEDICARE, OTHER | LOC: M SFHCPLAZ 13:08 | PROVIDERS: ATTEND Family Medicine | DX: D50.9 Iron deficiency anemia, unspecified (principal); R73.01 Impaired fasting glucose; E55.9 Vitamin D deficiency, unspecified; E78.5 Hyperlipidemia, unspecified ==

== ENCOUNTER → 2023-02-19 | Outpatient (CLI) | payer MEDICARE, OTHER | LOC: M CLY 10:47 | PROVIDERS: ATTEND Family Medicine | DX: M17.11 Unilateral primary osteoarthritis, right knee (principal) ==

== ENCOUNTER → 2023-04-01 | Outpatient (CLI) | payer MEDICARE, OTHER | LOC: M WHC 06:57 | PROVIDERS: ATTEND Family Medicine | DX: Z12.31 Encounter for screening mammogram for malignant neoplasm of breast (principal) ==

== ENCOUNTER 2023-06-29 12:35 | Emergency (ER) | payer MEDICARE, OTHER ==
[2023-06-29] MEDS ORDERED: IBUP200T46 PO (13:32)
[2023-06-29] MEDS ORDERED: ISOVUE-370 76% 100ML VIAL As Ordered ONE (17:36)
[2023-06-29 17:46] LABS: HEMATOCRIT 44.7 % (36.0-47.0); HEMOGLOBIN 14.8 g/dl (12.0-15.5); MEAN CORPUSCULAR HGB CONC 33.1 g/dl (32.0-36.5); MEAN CORPUSCULAR VOLUME 96.8 fl (80.0-96.0); PLATELET COUNT, AUTOMATED 280 10^3/uL (150-450); RED BLOOD COUNT 4.62 10^6/uL (4.00-5.40); WHITE BLOOD COUNT 10.2 10^3/uL (4.0-10.0)
[2023-06-29] MEDS ORDERED: NORCO, ANEXSIA 5/325MG TABLET (HYDROcodone/ACETAMINOPHEN) PO ONE (17:55)
[2023-06-29] MEDS ORDERED: HYDR-3713 PO (19:05)
[2023-06-29 19:08] VITALS: BP 145/66; TEMP 97.6; O2SAT 99
== END 2023-06-29 19:19 | disposition home or self-care (01) ==
LOC: M ED 12:35
DX: S22.31XA Fracture of one rib, right side, initial encounter for closed fracture (principal); S00.03XA Contusion of scalp, initial encounter; S30.1XXA Contusion of abdominal wall, initial encounter; W01.0XXA Fall on same level from slipping, tripping and stumbling without subsequent striking against object, initial encounter; I10 Essential (primary) hypertension; E78.5 Hyperlipidemia, unspecified; F10.10 Alcohol abuse, uncomplicated; Z88.1 Allergy status to other antibiotic agents; Z88.2 Allergy status to sulfonamides; Z88.8 Allergy status to other drugs, medicaments and biological substances; Y92.009 Unspecified place in unspecified non-institutional (private) residence as the place of occurrence of the external cause; Y93.89 Activity, other specified; Y99.9 Unspecified external cause status; Z79.82 Long term (current) use of aspirin; Z79.811 Long term (current) use of aromatase inhibitors; Z79.899 Other long term (current) drug therapy
CPT/HCPCS: 36415; 70450; 71101; 71260; 72125; 72128; 72131; 74177; 80047; 85027; 99284; Q9967

== ENCOUNTER → 2023-07-24 | Outpatient (CLI) | payer MEDICARE, OTHER ==
[~2023-07-24] MED LIST changes: +HYDR-3713 PO; +IBUP200T46 PO
== END ==
LOC: M RAD 13:10
PROVIDERS: ATTEND Family Medicine
DX: R93.89 Abnormal findings on diagnostic imaging of other specified body structures (principal)

== ENCOUNTER → 2023-08-20 | Outpatient (REF) | payer MEDICARE, OTHER ==
[2023-08-20 11:58] LABS: BASO # 0.1 10^3/uL (0.0-0.2); BASO % 1.2 % (0.0-1.0); EOS # 0.1 10^3/uL (0.0-0.5); EOS % 1.7 % (0.0-3.0); HEMATOCRIT 44.4 % (36.0-47.0); HEMOGLOBIN 14.3 g/dl (12.0-15.5); LYMPH # 1.6 10^3/uL (1.5-5.0); LYMPH % 27.1 % (24.0-44.0); MEAN CORPUSCULAR HEMOGLOBIN 31.7 pg (27.0-33.0); MEAN CORPUSCULAR HGB CONC 32.2 g/dl (32.0-36.5); MEAN CORPUSCULAR VOLUME 98.4 fl (80.0-96.0); MONO # 0.6 10^3/uL (0.0-0.8); MONO % 10.7 % (2.0-8.0); NEUTROPHILS # 3.4 10^3/uL (1.5-8.5); PLATELET COUNT, AUTOMATED 225 10^3/uL (150-450); RED BLOOD COUNT 4.51 10^6/uL (4.00-5.40); WHITE BLOOD COUNT 5.8 10^3/uL (4.0-10.0)
[2023-08-20 12:33] LABS: HEMOGLOBIN A1c 4.9 % (4.0-6.0)
[2023-08-20 12:37] LABS: FERRITIN 23.4 NG/ML (7.3-270.7)
[2023-08-20 12:38] LABS: TOTAL 25(OH) VITAMIN D 80.7 NG/ML (20.0-100.0)
[2023-08-20 12:41] LABS: CHOLESTEROL RISK RATIO 2.89 (<5); HDL CHOLESTEROL 58.8 MG/DL (>40); LDL CHOLESTEROL 95.8 MG/DL (<100); NON-HDL-C 111.2 MG/DL; PTH INTACT 71.6 PG/ML (18.5-88.0)
== END ==
LOC: M SFHCCLAY 07:19
PROVIDERS: ATTEND Family Medicine
DX: D50.9 Iron deficiency anemia, unspecified (principal); R73.01 Impaired fasting glucose; E55.9 Vitamin D deficiency, unspecified; E78.5 Hyperlipidemia, unspecified

== ENCOUNTER → 2023-08-21 | Outpatient (REF) | payer MEDICARE, OTHER | LOC: M SFHCWAGY 10:05 | PROVIDERS: ATTEND Specialist | DX: N95.0 Postmenopausal bleeding (principal) ==

== ENCOUNTER 2023-09-23 23:32 | Observation (INO) | payer MEDICARE, OTHER ==
[~2023-09-23] VITALS: Ht 157.5 cm; Wt 66.5 kg
[2023-09-24] MEDS ORDERED: LORA-1041 PO (00:07)
[2023-09-24] MEDS ORDERED: ATOR1TAB21 PO (00:07)
[2023-09-24 00:21] LABS: BASO # 0.1 10^3/uL (0.0-0.2); BASO % 0.7 % (0.0-1.0); EOS # 0.2 10^3/uL (0.0-0.5); EOS % 2.1 % (0.0-3.0); HEMATOCRIT 37.1 % (36.0-47.0); HEMOGLOBIN 12.5 g/dl (12.0-15.5); LYMPH # 1.9 10^3/uL (1.5-5.0); LYMPH % 22.2 % (24.0-44.0); MEAN CORPUSCULAR HEMOGLOBIN 32.4 pg (27.0-33.0); MEAN CORPUSCULAR HGB CONC 33.7 g/dl (32.0-36.5); MEAN CORPUSCULAR VOLUME 96.1 fl (80.0-96.0); MONO # 0.9 10^3/uL (0.0-0.8); MONO % 10.9 % (2.0-8.0); NEUTROPHILS # 5.4 10^3/uL (1.5-8.5); NEUTROPHILS % 63.4 % (36.0-66.0); PLATELET COUNT, AUTOMATED 226 10^3/uL (150-450); RED BLOOD COUNT 3.86 10^6/uL (4.00-5.40); WHITE BLOOD COUNT 8.5 10^3/uL (4.0-10.0)
[2023-09-24 00:24] LABS: INR 0.97; PARTIAL THROMBOPLASTIN TIME 29.9 SECONDS (24.8-34.2); PROTHROMBIN TIME 12.6 SECONDS (12.5-14.5)
[2023-09-24 00:29] LABS: CK-MB VALUE MASS 1.7 NG/ML (<3.6)
[2023-09-24 00:31] LABS: ALBUMIN 2.9 G/DL (3.2-5.2); ALKALINE PHOSPHATASE 90 U/L (46-116); ALT/SGPT 18 U/L (7.0-40); AST/SGOT 24 U/L (<34); BILIRUBIN,DIRECT < 0.1 MG/DL (<0.4); BILIRUBIN,TOTAL 0.2 MG/DL (0.3-1.2); BLOOD UREA NITROGEN 13 MG/DL (9-23); CALCIUM LEVEL 8.2 MG/DL (8.3-10.6); CARBON DIOXIDE LEVEL 25 MMOL/L (20-31); CHLORIDE LEVEL 111 MMOL/L (98-107); CREATININE FOR GFR 0.58 MG/DL (0.55-1.30); GLOMERULAR FILTRATION RATE > 60.0 (>39); GLUCOSE, FASTING 124 MG/DL (74-106); SODIUM LEVEL 144 MMOL/L (136-145); TOTAL PROTEIN 5.6 G/DL (5.7-8.2)
[2023-09-24 00:32] LABS: FREE T4 1.08 NG/DL (0.89-1.76); THYROID STIMULATING HORMONE 0.845 uIU/ML (0.55-4.78)
[2023-09-24] MEDS: ETOMIDATE INJ 20MG/10ML VIAL IV STA (00:36)
[2023-09-24 00:47] LABS: CPK CREATINE PHOSPHOKINASE 77 U/L (34-145)
[2023-09-24 01:25] LABS: CK-MB VALUE MASS 2.4 NG/ML (<3.6)
[2023-09-24 01:41] LABS: MB/CK RELATIVE INDEX 3.52 (< OR =4)
[2023-09-24] MEDS ORDERED: ISOVUE-370 76% 100ML VIAL As Ordered ONE (01:56)
[2023-09-24] MEDS: NS 500 ML IV ONE (02:00)
[2023-09-24 05:34] VITALS: BP 124/57; TEMP 97.1; O2SAT 99
[2023-09-24 08:16] VITALS: BP 127/72; TEMP 97.3; O2SAT 95
[2023-09-24] MEDS ORDERED: ALEN70TA82 PO (08:18)
[2023-09-24] MEDS ORDERED: MULTTAB61 PO (08:18)
[2023-09-24] MEDS ORDERED: CHOL50002 PO (08:19)
[2023-09-24] MEDS ORDERED: HOME MED LIST COMPLETE! XX SCH (08:20)
[2023-09-24] MEDS: ASPIRIN 81MG ENTERIC TABLET PO SCH (10:46)
[2023-09-24] MEDS: APIXABAN 5 MG TAB (ELIQUIS) PO SCH (10:47)
[2023-09-24] MEDS: ATORVASTATIN 20 MG TAB PO SCH (10:47)
[2023-09-24] MEDS: METOPROLOL TART 25 MG TABLET PO SCH (10:47)
[2023-09-24] MEDS: MAGNESIUM OXIDE 400MG TAB (MAG-OX) PO SCH (10:48)
[2023-09-24] MEDS: LORATADINE 10 MG TAB PO SCH (10:48)
[2023-09-24 11:27] VITALS: BP 126/58; TEMP 97.6; O2SAT 100
[2023-09-24] MEDS ORDERED: ELIQ5TAB PO (11:34)
[2023-09-24] MEDS ORDERED: PRIL20TA2 PO (11:34)
[2023-09-24] MEDS ORDERED: LISI10TA22 PO (11:36)
[2023-09-24 16:25] VITALS: BP 124/61; TEMP 97.7; O2SAT 96
[2023-09-24 18:46] VITALS: BP 126/59; TEMP 96.9; O2SAT 97
[2023-09-24] MEDS ORDERED: lisinopriL 5 MG TAB PO SCH (21:00)
[2023-09-24 21:27] VITALS: BP 109/55
[2023-09-25 00:03] VITALS: BP 118/59; TEMP 97.5; O2SAT 98
[2023-09-25 04:29] VITALS: BP 121/56; TEMP 97.3; O2SAT 99
[2023-09-25 07:09] LABS: BLOOD UREA NITROGEN 12 MG/DL (9-23); CALCIUM LEVEL 8.6 MG/DL (8.3-10.6); CARBON DIOXIDE LEVEL 29 MMOL/L (20-31); CHLORIDE LEVEL 108 MMOL/L (98-107); CREATININE FOR GFR 0.66 MG/DL (0.55-1.30); GLOMERULAR FILTRATION RATE > 60.0 (>39); GLUCOSE, FASTING 93 MG/DL (74-106); POTASSIUM SERUM 3.7 MMOL/L (3.5-5.1); SODIUM LEVEL 142 MMOL/L (136-145)
[2023-09-25 07:35] VITALS: BP 136/59; TEMP 97.1; O2SAT 99
[2023-09-25 09:18] VITALS: BP 134/63
[2023-09-25 09:22] VITALS: BP 134/63
[2023-09-25 11:34] VITALS: BP 122/56; O2SAT 98
[2023-09-25] MEDS ORDERED: METO25TA4 PO (14:12)
== END 2023-09-25 14:33 | disposition home or self-care (01) ==
LOC: M ED 23:32 → M ED INP 23:33 → M PCU 09-24 05:38
PROVIDERS: ADMIT Internal Medicine; ATTEND Internal Medicine
DX: I48.91 Unspecified atrial fibrillation (principal); I10 Essential (primary) hypertension; R29.6 Repeated falls; I95.9 Hypotension, unspecified; I36.1 Nonrheumatic tricuspid (valve) insufficiency; Z87.891 Personal history of nicotine dependence; Z79.82 Long term (current) use of aspirin; Z79.899 Other long term (current) drug therapy; Z88.0 Allergy status to penicillin; Z88.1 Allergy status to other antibiotic agents; Z88.2 Allergy status to sulfonamides; Z88.8 Allergy status to other drugs, medicaments and biological substances
CPT/HCPCS: 36415; 71046; 71275; 80048; 80076; 82550; 82553; 83880; 84439; 84443; 84484; 85025; 85610; 85730; 92960; 93005; 93041; 93306; 94760; 96360; 96361; 97116; 97161; 97165; 99285; G0378; Q9967

== ENCOUNTER → 2024-01-18 | Outpatient (REF) | payer MEDICARE, OTHER ==
[~2024-01-18] MED LIST changes: +ALEN70TA82 PO; +ATOR1TAB21 PO; +CHOL50002 PO; +CRAN500C11 PO; -CVS500CA5 PO; +ELIQ5TAB PO; +LISI10TA22 PO; +LORA-1041 PO; +METO25TA4 PO; +MULTTAB61 PO; +PRIL20TA2 PO
[2024-01-18 11:55] LABS: BASO % 0.6 % (0.0-1.0); EOS # 0.1 10^3/uL (0.0-0.5); EOS % 1.7 % (0.0-3.0); HEMATOCRIT 43.4 % (36.0-47.0); HEMOGLOBIN 14.1 g/dl (12.0-15.5); LYMPH # 1.3 10^3/uL (1.5-5.0); MEAN CORPUSCULAR HGB CONC 32.5 g/dl (32.0-36.5); MEAN CORPUSCULAR VOLUME 95.4 fl (80.0-96.0); MONO # 0.7 10^3/uL (0.0-0.8); MONO % 9.4 % (2.0-8.0); NEUTROPHILS % 69.7 % (36.0-66.0); PLATELET COUNT, AUTOMATED 264 10^3/uL (150-450); RED BLOOD COUNT 4.55 10^6/uL (4.00-5.40); WHITE BLOOD COUNT 7.2 10^3/uL (4.0-10.0)
[2024-01-18 12:01] LABS: ALBUMIN 3.6 G/DL (3.2-5.2); ALKALINE PHOSPHATASE 97 U/L (46-116); ALT/SGPT 14 U/L (7.0-40); AST/SGOT 16 U/L (<34); BILIRUBIN,TOTAL 0.7 MG/DL (0.3-1.2); BLOOD UREA NITROGEN 17 MG/DL (9-23); CALCIUM LEVEL 9.3 MG/DL (8.3-10.6); CARBON DIOXIDE LEVEL 34 MMOL/L (20-31); CHLORIDE LEVEL 104 MMOL/L (98-107); CHOLESTEROL LEVEL 159 MG/DL (<200); CHOLESTEROL RISK RATIO 3.39 (<5); CREATININE FOR GFR 0.77 MG/DL (0.55-1.30); GLOMERULAR FILTRATION RATE > 60.0 (>39); GLUCOSE, FASTING 102 MG/DL (74-106); HDL CHOLESTEROL 46.9 MG/DL (>40); LDL CHOLESTEROL 91.3 MG/DL (<100); MAGNESIUM LEVEL 2.2 MG/DL (1.8-2.4); NON-HDL-C 112.1 MG/DL; POTASSIUM SERUM 4.9 MMOL/L (3.5-5.1); PTH INTACT 57.3 PG/ML (18.5-88.0); SODIUM LEVEL 140 MMOL/L (136-145); TOTAL PROTEIN 6.3 G/DL (5.7-8.2); TRIGLYCERIDES LEVEL 104 MG/DL (<150)
[2024-01-18 12:02] LABS: FERRITIN 44.2 NG/ML (7.3-270.7); TOTAL 25(OH) VITAMIN D 87.8 NG/ML (20.0-100.0); VITAMIN B12 LEVEL 879 PG/ML (211-911)
== END ==
LOC: M SFHCPLAZ 07:10
PROVIDERS: ATTEND Family Medicine
DX: D50.9 Iron deficiency anemia, unspecified (principal); E55.9 Vitamin D deficiency, unspecified; E78.5 Hyperlipidemia, unspecified; I50.32 Chronic diastolic (congestive) heart failure; K76.0 Fatty (change of) liver, not elsewhere classified

== ENCOUNTER → 2024-04-04 | Outpatient (CLI) | payer MEDICARE, OTHER ==
[~2024-04-04] MED LIST changes: -CRAN500C11 PO; +CVS500CA5 PO
== END ==
LOC: M WHC 13:29
PROVIDERS: ATTEND Family Medicine
DX: Z12.31 Encounter for screening mammogram for malignant neoplasm of breast (principal); M81.0 Age-related osteoporosis without current pathological fracture; R92.323 Mammographic fibroglandular density, bilateral breasts

== ENCOUNTER → 2024-05-23 | Outpatient (REF) | payer MEDICARE, OTHER ==
[2024-05-23 11:13] LABS: BASO # 0.1 10^3/uL (0.0-0.2); BASO % 0.9 % (0.0-1.0); EOS # 0.1 10^3/uL (0.0-0.5); HEMATOCRIT 44.6 % (36.0-47.0); HEMOGLOBIN 14.9 g/dl (12.0-15.5); LYMPH # 1.5 10^3/uL (1.5-5.0); LYMPH % 21.5 % (24.0-44.0); MEAN CORPUSCULAR HEMOGLOBIN 32.7 pg (27.0-33.0); MEAN CORPUSCULAR HGB CONC 33.4 g/dl (32.0-36.5); MEAN CORPUSCULAR VOLUME 97.8 fl (80.0-96.0); MONO # 0.7 10^3/uL (0.0-0.8); MONO % 9.5 % (2.0-8.0); NEUTROPHILS # 4.6 10^3/uL (1.5-8.5); NEUTROPHILS % 66.8 % (36.0-66.0); PLATELET COUNT, AUTOMATED 216 10^3/uL (150-450); RED BLOOD COUNT 4.56 10^6/uL (4.00-5.40); WHITE BLOOD COUNT 6.9 10^3/uL (4.0-10.0)
[2024-05-23 11:32] LABS: ALBUMIN 3.5 G/DL (3.2-5.2); ALKALINE PHOSPHATASE 74 U/L (35-104); ALT/SGPT 16 U/L (7.0-40); AST/SGOT 14 U/L (<34); BILIRUBIN,TOTAL 0.6 MG/DL (0.3-1.2); BLOOD UREA NITROGEN 18 MG/DL (9-23); CALCIUM LEVEL 9.4 MG/DL (8.3-10.6); CARBON DIOXIDE LEVEL 33 MMOL/L (20-31); CHLORIDE LEVEL 106 MMOL/L (98-107); CREATININE FOR GFR 0.81 MG/DL (0.55-1.30); GLOMERULAR FILTRATION RATE > 60.0 (>39); GLUCOSE, FASTING 102 MG/DL (74-106); POTASSIUM SERUM 4.3 MMOL/L (3.5-5.1); SODIUM LEVEL 143 MMOL/L (136-145); TOTAL PROTEIN 6.4 G/DL (5.7-8.2)
[2024-05-23 11:39] LABS: FERRITIN 45.5 NG/ML (7.3-270.7); TOTAL 25(OH) VITAMIN D 77.4 NG/ML (20.0-100.0)
[2024-05-23 21:29] LABS: PTH INTACT 47.5 PG/ML (18.5-88.0)
== END ==
LOC: M SFHCPLAZ 08:12
PROVIDERS: ATTEND Family Medicine
DX: D50.9 Iron deficiency anemia, unspecified (principal); E55.9 Vitamin D deficiency, unspecified; I50.32 Chronic diastolic (congestive) heart failure

== ENCOUNTER → 2024-09-15 | Outpatient (REF) | payer MEDICARE, OTHER ==
[2024-09-15 12:25] LABS: BASO # 0.1 10^3/uL (0.0-0.2); BASO % 0.7 % (0.0-1.0); EOS % 0.4 % (0.0-3.0); HEMATOCRIT 45.1 % (36.0-47.0); HEMOGLOBIN 14.6 g/dl (12.0-15.5); LYMPH # 1.3 10^3/uL (1.5-5.0); LYMPH % 17.4 % (24.0-44.0); MEAN CORPUSCULAR HEMOGLOBIN 31.3 pg (27.0-33.0); MEAN CORPUSCULAR HGB CONC 32.4 g/dl (32.0-36.5); MEAN CORPUSCULAR VOLUME 96.8 fl (80.0-96.0); MONO # 0.4 10^3/uL (0.0-0.8); MONO % 5.6 % (2.0-8.0); NEUTROPHILS # 5.5 10^3/uL (1.5-8.5); NEUTROPHILS % 75.6 % (36.0-66.0); PLATELET COUNT, AUTOMATED 243 10^3/uL (150-450); RED BLOOD COUNT 4.66 10^6/uL (4.00-5.40); WHITE BLOOD COUNT 7.3 10^3/uL (4.0-10.0)
[2024-09-15 12:46] LABS: HEMOGLOBIN A1c 5.1 % (4.0-6.0)
[2024-09-15 12:56] LABS: ALBUMIN 3.7 G/DL (3.2-5.2); BILIRUBIN,TOTAL 0.6 MG/DL (0.3-1.2); CALCIUM LEVEL 8.9 MG/DL (8.3-10.6); CHOLESTEROL RISK RATIO 3.03 (<5); CREATININE FOR GFR 0.77 MG/DL (0.55-1.30); FERRITIN 50.2 NG/ML (7.3-270.7); FREE T4 1.19 NG/DL (0.89-1.76); GLOMERULAR FILTRATION RATE 79.9 (>39); HDL CHOLESTEROL 56.6 MG/DL (>40); LDL CHOLESTEROL 95.2 MG/DL (<100); NON-HDL-C 115.4 MG/DL; POTASSIUM SERUM 4.5 MMOL/L (3.5-5.1); THYROID STIMULATING HORMONE 0.658 uIU/ML (0.55-4.78); TOTAL PROTEIN 6.4 G/DL (5.7-8.2)
== END ==
LOC: M SFHCPLAZ 08:02
PROVIDERS: ATTEND Family Medicine
DX: D50.9 Iron deficiency anemia, unspecified (principal); I50.32 Chronic diastolic (congestive) heart failure; R73.01 Impaired fasting glucose; E78.5 Hyperlipidemia, unspecified

== ENCOUNTER → 2024-12-12 | Outpatient (CLI) | payer MEDICARE, OTHER | LOC: M PLAIMG 09:02 | PROVIDERS: ATTEND Physician Assistant Medical | DX: M25.551 Pain in right hip (principal); M25.561 Pain in right knee; M16.11 Unilateral primary osteoarthritis, right hip; M17.11 Unilateral primary osteoarthritis, right knee; M47.816 Spondylosis without myelopathy or radiculopathy, lumbar region; M43.16 Spondylolisthesis, lumbar region; M47.817 Spondylosis without myelopathy or radiculopathy, lumbosacral region ==

== ENCOUNTER → 2025-02-07 | Outpatient (REF) | payer MEDICARE, OTHER ==
[2025-02-07 12:35] LABS: BASO # 0.1 10^3/uL (0.0-0.2); BASO % 0.9 % (0.0-1.0); EOS # 0.1 10^3/uL (0.0-0.5); EOS % 1.5 % (0.0-3.0); LYMPH # 1.8 10^3/uL (1.5-5.0); LYMPH % 24.4 % (24.0-44.0); MONO # 0.7 10^3/uL (0.0-0.8); MONO % 9.3 % (2.0-8.0); NEUTROPHILS # 4.7 10^3/uL (1.5-8.5); NEUTROPHILS % 63.4 % (36.0-66.0); PLATELET COUNT, AUTOMATED 240 10^3/uL (150-450)
[2025-02-07 12:40] LABS: ALT/SGPT 18.0 U/L (7.0-40); AST/SGOT 20.0 U/L (<34); CALCIUM LEVEL 9.1 MG/DL (8.3-10.6); CARBON DIOXIDE LEVEL 33.0 MMOL/L (20-31); CHLORIDE LEVEL 105.0 MMOL/L (98-107); CHOLESTEROL LEVEL 162.0 MG/DL (<200); CHOLESTEROL RISK RATIO 3.03 (<5); CREATININE FOR GFR 0.79 MG/DL (0.55-1.30); GLOMERULAR FILTRATION RATE 77.0 (>39); LDL CHOLESTEROL 90.5 MG/DL (<100); NON-HDL-C 108.7 MG/DL; POTASSIUM SERUM 4.6 MMOL/L (3.5-5.1); SODIUM LEVEL 142.0 MMOL/L (136-145); TRIGLYCERIDES LEVEL 91.0 MG/DL (<150)
[2025-02-07 12:44] LABS: FREE T4 1.17 NG/DL (0.89-1.76); VITAMIN B12 LEVEL 915.0 PG/ML (211-911)
[2025-02-07 13:19] LABS: ESTIMATED AVERAGE GLUCOSE 105.0 MG/DL (60-110)
== END ==
LOC: M SFHCPLAZ 07:14
PROVIDERS: ATTEND Family Medicine
DX: D50.9 Iron deficiency anemia, unspecified (principal); I50.32 Chronic diastolic (congestive) heart failure; R73.01 Impaired fasting glucose; E78.5 Hyperlipidemia, unspecified; G31.84 Mild cognitive impairment of uncertain or unknown etiology

== ENCOUNTER → 2025-03-10 | Outpatient (CLI) | payer MEDICARE, OTHER | LOC: M WHC 10:14 | PROVIDERS: ATTEND Nurse Practitioner Family | DX: N95.0 Postmenopausal bleeding (principal) ==

== ENCOUNTER → 2025-04-05 | Outpatient (CLI) | payer MEDICARE, OTHER | LOC: M WHC 12:15 | PROVIDERS: ATTEND Family Medicine | DX: M81.0 Age-related osteoporosis without current pathological fracture (principal); Z12.31 Encounter for screening mammogram for malignant neoplasm of breast; R92.323 Mammographic fibroglandular density, bilateral breasts; M85.89 Other specified disorders of bone density and structure, multiple sites ==

== ENCOUNTER → 2025-06-06 | Outpatient (REF) | payer MEDICARE, OTHER ==
[2025-06-06 12:30] LABS: BASO # 0.1 10^3/uL (0.0-0.2); BASO % 0.8 % (0.0-1.0); EOS # 0.2 10^3/uL (0.0-0.5); EOS % 2.2 % (0.0-3.0); LYMPH # 1.7 10^3/uL (1.5-5.0); LYMPH % 23.7 % (24.0-44.0); MONO # 0.7 10^3/uL (0.0-0.8); MONO % 9.0 % (2.0-8.0); NEUTROPHILS # 4.6 10^3/uL (1.5-8.5); NEUTROPHILS % 63.9 % (36.0-66.0); PLATELET COUNT, AUTOMATED 264 10^3/uL (150-450)
[2025-06-06 13:00] LABS: ALT/SGPT 15.0 U/L (7.0-40); AST/SGOT 15.0 U/L (<34); CALCIUM LEVEL 9.8 MG/DL (8.3-10.6); CARBON DIOXIDE LEVEL 35.0 MMOL/L (20-31); CHLORIDE LEVEL 101.0 MMOL/L (98-107); CHOLESTEROL LEVEL 173.0 MG/DL (<200); CHOLESTEROL RISK RATIO 2.94 (<5); CREATININE FOR GFR 0.83 MG/DL (0.55-1.30); FREE T4 1.27 NG/DL (0.89-1.76); GLOMERULAR FILTRATION RATE 72.6 (>39); LDL CHOLESTEROL 92.9 MG/DL (<100); NON-HDL-C 114.3 MG/DL; POTASSIUM SERUM 4.6 MMOL/L (3.5-5.1); PTH INTACT 72.0 PG/ML (18.5-88.0); SODIUM LEVEL 142.0 MMOL/L (136-145); TRIGLYCERIDES LEVEL 107.0 MG/DL (<150)
[2025-06-06 13:02] LABS: TOTAL 25(OH) VITAMIN D 71.6 NG/ML (20.0-100.0)
[2025-06-06 14:31] LABS: ESTIMATED AVERAGE GLUCOSE 100.0 MG/DL (60-110)
== END ==
LOC: M SFHCPLAZ 07:36
PROVIDERS: ATTEND Family Medicine
DX: D50.9 Iron deficiency anemia, unspecified (principal); I50.32 Chronic diastolic (congestive) heart failure; R73.01 Impaired fasting glucose; E78.5 Hyperlipidemia, unspecified; K76.0 Fatty (change of) liver, not elsewhere classified; E55.9 Vitamin D deficiency, unspecified